=== PATIENT | male | born 1985 | race Two or more races ===

== ENCOUNTER 2018-01-10 20:04 | Emergency (ER) | payer SELFPAY ==
[2018-01-10] MEDS: HYDROcodone/APAP 5/325MG 1 TAB TABLET PO (21:00)
[2018-01-10] MEDS: DIPHTH,PERTUSS(ACELL),TET TOX 0.5 ML DISP.SYRIN. VAX IM (21:02)
== END 2018-01-10 21:09 | disposition home or self-care (01) ==
LOC: ER 21:09
DX: S61.412A Laceration without foreign body of left hand, initial encounter (principal); Y24.0XXA Airgun discharge, undetermined intent, initial encounter; Y93.89 Activity, other specified; Y92.89 Other specified places as the place of occurrence of the external cause; Y99.8 Other external cause status
CPT/HCPCS: 73130; 90471; 90715; 99284-25

== ENCOUNTER 2018-12-04 20:01 | Emergency (ER) | payer SELFPAY ==
[~2018-12-04] VITALS: Ht 165.1 cm; Wt 55.3 kg
[~2018-12-04 20:01] MED LIST: ACET-704 PO; CEPH500T PO; NAPR-677 PO
[2018-12-04 20:13] VITALS: BP 133/72
--- NOTE | 2018-12-04 20:35 | PHYS DOC ---
Past Medical History Past Medical History: No Pertinent History (LARISSA CHEATHAM APRN) Past Surgical History: Other Additional Past Surgical Histo: chin (LARISSA CHEATHAM APRN) Alcohol Use: None Drug Use: None (LARISSA CHEATHAM APRN) Adult General Chief Complaint Chief Complaint: SUTURE/STAPLE REMOVAL [facility] HPI Patient is a 33 year old male who presents with a 42 dena removed from the crown of his head. The patient states that these were placed at . He states they were placed approximately 2 weeks ago after he fell and had a laceration to his scalp. He denies any complications. (LARISSA CHEATHAM APRN) Review of Systems Review of Systems Constitutional: Denies fever or chills [] Respiratory: Denies cough or shortness of breath [] Cardiovascular: No additional information not addressed in [facility] [] GI: Denies abdominal pain, nausea, vomiting, bloody stools or diarrhea [] : Denies dysuria or hematuria [] Musculoskeletal: Denies back pain or joint pain [] Integument: See history of present illness Neurologic: Denies headache, focal weakness or sensory changes [] Endocrine: Denies polyuria or polydipsia [] All other systems were reviewed and found to be within normal limits, except as documented in this note. (LARISSA CHEATHAM APRN) Allergies Allergies Allergies Coded Allergies Type Severity Reaction Last Updated Verified No Known Drug Allergies 01/10/18 No (STEFAN DOS SANTOS Jr. DO) Physical Exam Physical Exam Constitutional: Well developed, well nourished, no acute distress, non-toxic appearance. [] Cardiovascular:Heart rate regular rhythm, no murmur [] Lungs & Thorax: Bilateral breath sounds clear to auscultation [] Abdomen: Bowel sounds normal, soft, no tenderness, no masses, no pulsatile masses. [] Skin: 2 dena noted to be very well-healed laceration to the occiput Back: No tenderness, no CVA tenderness. [] Extremities: No tenderness, no cyanosis, no clubbing, ROM intact, no edema. [] Neurologic: Alert and oriented X 3, normal motor function, normal sensory function, no focal deficits noted. [] Psychologic: Affect normal, judgement normal, mood normal. [] (LARISSA CHEATHAM APRN) Current Patient Data Vital Signs Vital Signs Date Time Temp Pulse Resp B/P (MAP) Pulse Ox O2 Delivery O2 Flow Rate FiO2 12/04/18 20:13 98.3 96 16 133/72 (92) 98 Room Air 98.3 (STEFAN DOS SANTOS Jr. DO) EKG EKG [] (LARISSA CHEATHAM APRN) Radiology/Procedures Radiology/Procedures []2 dena were removed with no complications. (LARISSA CHEATHAM APRN) Course & Med Decision Making Course & Med Decision Making Pertinent Labs and Imaging studies reviewed. (See chart for details) [] (LARISSA CHEATHAM APRN) Dragon Disclaimer Dragon Disclaimer This electronic medical record was generated, in whole or in part, using a voice recognition dictation system. (LARISSA CHEATHAM APRN) Departure Departure Impression: Primary Impression: Removal of dena Disposition: HOME, SELF-CARE Condition: STABLE Referrals: NON,STAFF (PCP) Patient Instructions: Staple Care and Removal Additional Instructions: Keep the clean and dry. Follow-up with your primary care provider for future healthcare needs. Attending Signature Attending Signature I have reviewed the PA/CLOTH WINDER MACHINE OPERATOR's note and plan of care. I was available for consultation as needed during the patient's visit in the emergency department. I agree with the clinical impression, plan, and disposition. (STEFAN DOS SANTOS Jr., DO) LARISSA CHEATHAM APRN Dec 04, 2018 20:35 STEFAN DOS SANTOS Jr., DO Dec 12, 2018 10:22
== END 2018-12-04 20:40 | disposition home or self-care (01) ==
LOC: ER 20:01
DX: S01.01XD Laceration without foreign body of scalp, subsequent encounter (principal); W19.XXXD Unspecified fall, subsequent encounter
CPT/HCPCS: 99281